=== PATIENT | female | born 1965 | race Caucasian/White ===

== ENCOUNTER 2017-01-11 06:13 | Emergency (ER) | payer OTHER ==
[~2017-01-11] VITALS: Ht 162.6 cm; Wt 74.9 kg
[~2017-01-11 06:13] MED LIST: HYDR-3498 PO
[2017-01-11 06:16] VITALS: Ht 162.6 cm; Wt 74.9 kg
[2017-01-11] MEDS ORDERED: NPH10OT RIGHT EAR (07:31)
--- NOTE | 2017-01-11 08:57 | ERD ---
ER Documentation Chief Complaint Chief Complaint sudden ear pain this AM; not sure if something is inside her ear HPI -year-old female presents emergency department complaining of right sudden onset of ear pain since she woke up this morning. She states that she does have decreased hearing and possible something in her ear. She denies any discharge, trauma, fevers ROS All systems reviewed and are negative except as per history of present illness. Medications Home Meds Active Scripts Neomycin/Polymyxin/Hydrocort* (Cortisporin* Otic) 10 Ml Susp, 4 DROP RIGHT EAR QID for 7 Days, #1 EA Prov:LUCIA LEMUS PA-C 01/11/17 Hydrocodone Bit-Acetaminophen* (Cast[place]*) 5-325 Mg Tab, 1 TAB PO Q6 Y for PAIN, # 20 TAB Prov:XENIA SUAREZ 05/18/15 Allergies Allergies: Coded Allergies: No Known Allergy (Unverified , 01/11/17) PMhx/Soc History of Surgery: Yes (hysterectomy, oopherectomy) Anesthesia Reaction: No Hx Neurological Disorder: No Hx Respiratory Disorders: No Hx Cardiac Disorders: Yes (htn, hyperlipdemia) Hx Alcohol Use: No Hx Substance Use: No Hx Tobacco Use: No Smoking Status: Never smoker Physical Exam Vitals Vital Signs Date Time Temp Pulse Resp B/P Pulse Ox O2 Delivery O2 Flow Rate FiO2 01/11/17 06:16 97.7 61 20 196/93 100 Physical Exam Const: wdwn Head: Atraumatic Eyes: Normal Conjunctiva ENT: Right tympanic membrane has evidence of an insect Neck: Full range of motion..~ No meningismus. Resp: Clear to auscultation bilaterally Cardio: Regular rate and rhythm, no murmurs Abd: Soft, non tender, non distended. Normal bowel sounds Skin: No petechiae or rashes Back: No midline or flank tenderness Ext: No cyanosis, or edema Neur: Awake and alert Psych: Normal Mood and Affect Procedures/MDM This is a 51-year-old female presenting to the emergency department with sudden onset of right ear pain this morning likely due to a foreign body insect. In the ED, ear lavage was performed. I have removed most of the insect however there was some residue particles in the ear. Patient had a lot of resolution in symptoms. I have given prescription for Cortisporin have discussed with her to follow-up with her ENT specialist or primary care physician. Discussed return to the ER for any worsening signs or symptoms patient understands and agrees with plan Departure Diagnosis: Primary Impression: Foreign body in ear Condition: Stable Patient Instructions: Foreign Body, Ear Canal (Removed), Foreign Body, Soft Tissue [Not Removed] Referrals: ELSA WILSON MD Additional Instructions: Visite a [facility] para un EXAMEN.Regrese a estas instalaciones si no se mejora nemo esperbamos o nemo le dijimos. Regrese a estas instalaciones si no se mejora nemo esperbamos o nemo le dijimos. LUCIA LEMUS PA-C Jan 11, 2017 08:57
== END 2017-01-11 08:25 | disposition home or self-care (01) ==
LOC: FTE 06:13
DX: T16.1XXA Foreign body in right ear, initial encounter (principal); I10 Essential (primary) hypertension; X58.XXXA Exposure to other specified factors, initial encounter; Y92.9 Unspecified place or not applicable
CPT/HCPCS: 99283

== ENCOUNTER 2018-10-03 06:31 | Emergency (ER) | payer OTHER ==
[~2018-10-03] VITALS: Ht 157.5 cm; Wt 81.3 kg
[~2018-10-03 06:31] MED LIST changes: +AZIT250T PO; +FLUT9.9S NASAL; +NAPR-985 PO; +NPH10OT RIGHT EAR; +PSEU-79 PO
[2018-10-03 06:35] VITALS: BP 151/92; PULSE 60; RESP 20; Ht 157.5 cm; Wt 81.3 kg
== END 2018-10-03 07:14 | disposition home or self-care (01) ==
LOC: FTE 06:31
DX: J32.9 Chronic sinusitis, unspecified (principal); I10 Essential (primary) hypertension; J06.9 Acute upper respiratory infection, unspecified
CPT/HCPCS: 99283